=== PATIENT | male | born 1955 | race Caucasian/White ===

== ENCOUNTER 2017-01-24 13:43 | Emergency (ER) | payer OTHER ==
--- NOTE | 2017-01-24 13:55 | EDPHY ---
H & P HPI/ROS: CHIEF COMPLAINT: Ankle pain, fall HISTORY OF PRESENT ILLNESS: Hiking this afternoon when he slipped and fell, and he thinks his ankle hyper-plantarflexed. sudden onset of pain in the left ankle , more medial than lateral. Severe enough that he can bear weight on it. Does not radiate. Worse with palpation and weight-bearing. Improved at rest. No numbness or tingling. No pain in the ipsilateral knee, proximal fibula, heel or midfoot. No head injury or loss of conscious. No chest or back pain. No abdominal pain. No injuries elsewhere. No other associated complaints or modifying factors past. Arrived by EMS and is seen at time of arrival. PRIOR ORTHO INJURIES: ankle sprains ESTABLISHED ORTHOPEDIST: REVIEW OF SYSTEMS: Ten systems reviewed and are negative unless otherwise noted in the HPI EXAMINATION General Appearance: Alert, no distress Head: normocephalic, atraumatic Eyes: Pupils equal and round, no conjunctival pallor or injection ENT, Mouth: Mucous membranes moist Neck: Normal inspection Respiratory: No dyspnea or retractions. No distress Cardiovascular: Pulses normal throughout. Symmetric DP and PT pulses 2+. Brisk cap refill Neurological: A&O, sensory symmetric, strength symmetric Skin: Warm and dry, no rash Extremities: Tenderness to palpation of the left ankle, more medial than lateral. There is ecchymosis over the medial malleolus. Some edema. No erythema. No tenderness of the left mid foot or heel. No tenderness of the left proximal fibula. Range of motion is intact but painful. No laceration or abrasions. Neurovascular intact distal to the injury. Psychiatric: Mood and affect normal DIFFERENTIAL DIAGNOSES: Including but not limited to ankle sprain, ankle fracture, dislocation, contusion, edema, ecchymosis MDM: 1:45 p.m. mechanical fall with left ankle injury. Neuro intact distal to his injury. The pain is more medial than lateral. There is no pain of this lateral foot, heel, dasilva or proximal fibula. No head or neck injury. No pain elsewhere. X-ray has been ordered. Hemodynamically stable. Morphine was administered EN route by EMS. 2:15 p.m. oblique fracture of the distal fibula closed. Oblique fracture of the posterior malleolus closed. He is neurovascularly intact. His pain is controlled. There is no hematoma. I discussed the case with the on-call orthopedist Dr. Montero, by his PA. They agree with a posterior splint with stirrup, crutches, nonweightbearing and follow up in their office early next week. Given the fact that he is on Coumadin, I recommend that he call his primary care physician to discuss holding the Coumadin because the fracture. He will do so upon discharge home. He is to return to the emergency department for precautions as listed below. Patient's spouse are comfortable with this plan. Discharged home nonweightbearing on LLE, neurovascular intact. ED Precautions: Worsening pain. Erythema, edema, cyanosis, pallor, paresthesia or anesthesia. SUPERVISION: This patient was independently evaluated without the aide of supervising physician. Source: Patient, EMS Exam Limitations: No limitations Constitutional: Initial Vital Signs Temperature (C) 97.7 F 01/24/17 13:53 Heart Rate 64 01/24/17 13:53 Respiratory Rate 18 01/24/17 13:53 Blood Pressure 132/75 H 01/24/17 13:53 O2 Sat (%) 93 01/24/17 13:53 O2 Delivery Mode Room Air Allergies/Adverse Reactions: No Known Allergies Allergy (Unverified 01/24/17 13:56) Home Medications: Medication Instructions Recorded Hydroxyurea 01/24/17 Warfarin Sodium 01/24/17 oxyCODONE HCL/ACETAMINOPHEN 1 each PO Q4-6PRN PRN #20 tablet 01/24/17 [Percocet 5-325 mg Tablet] Departure - Departure Disposition: Home, Routine, Self-Care Clinical Impression: Closed left fibular fracture Qualifiers: Encounter type: initial encounter Fibula location: distal Fracture morphology: unspecified fracture morphology Qualified Code(s): S82.832A - Other fracture of upper and lower end of left fibula, initial encounter for closed fracture Fracture, posterior malleolus Qualifiers: Encounter type: initial encounter Fracture type: closed Laterality: left Qualified Code(s): S82.892A - Other fracture of left lower leg, initial encounter for closed fracture Sprain of ankle, left Qualifiers: Encounter type: initial encounter Involved ligament of ankle: unspecified ligament Qualified Code(s): S93.402A - Sprain of unspecified ligament of left ankle, initial encounter Condition: Good Instructions: Ankle Fracture (ED), Ankle Sprain (ED) Additional Instructions: follow-up with Orthopedics as discussed. Return to ER for worsening pain, numbness, tingling, increasing swelling Referrals: Patient,NotPresent [Primary Care Provider] - As per Instructions Esteban Montero MD [Medical Doctor] - As per Instructions Prescriptions: oxyCODONE HCL/ACETAMINOPHEN [Percocet 5-325 mg Tablet] 1 each PO Q4-6PRN PRN # 20 tablet PRN Reason: Pain, Breakthrough
[2017-01-24 15:01] VITALS: BP 136/72; PULSE 59; RESP 20; TEMP 97.9; O2SAT 94
== END 2017-01-24 16:17 | disposition home or self-care (01) ==
LOC: EDUNIT#
DX: S82.832A Other fracture of upper and lower end of left fibula, initial encounter for closed fracture (principal); S82.892A Other fracture of left lower leg, initial encounter for closed fracture; S93.402A Sprain of unspecified ligament of left ankle, initial encounter; Z79.01 Long term (current) use of anticoagulants; W01.0XXA Fall on same level from slipping, tripping and stumbling without subsequent striking against object, initial encounter

== ENCOUNTER → 2017-04-30 | Outpatient (CLI) | payer OTHER | LOC: FIMAGING 12:31 | PROVIDERS: ATTEND Orthopaedic Surgery Sports Medicine | DX: M79.662 Pain in left lower leg (principal) ==